=== PATIENT | female | born 1975 | race Caucasian/White ===

== ENCOUNTER 2018-05-24 11:00 | Emergency (ER) | payer MEDICARE ==
[~2018-05-24] VITALS: Ht 162.6 cm; Wt 54.5 kg
[2018-05-24 11:16] VITALS: Ht 162.6 cm; Wt 54.5 kg
[2018-05-24 11:40] LABS: BASOPHILS 0.2 % (0-2); EOSINOPHILS 0.8 % (0-7); HEMATOCRIT 41.8 % (36.0-48.0); HEMOGLOBIN 14.3 g/dL (12-16); IMMATURE GRANULOCYTES 0.2 % (0-5); LYMPHOCYTES 17.6 % (15-50); MCH 32.5 pg (26.0-34.0); MCHC 34.2 g/dL (31.0-37.0); MEAN PLATELET VOLUME 9.1 fL (7.4-10.4); MONOCYTES 6.3 % (2-11); NEUTROPHILS 74.9 % (40-80); PLATELET COUNT 223 10x3/uL (130-400); RDW 12.3 % (11.5-14.5); WBC 10.7 10x3/uL (4.8-10.8)
[2018-05-24 11:53] LABS: APPEARANCE HAZY (CLEAR); BILIRUBIN NEGATIVE (NEGATIVE); COLOR STRAW (YELLOW); GLUCOSE NEGATIVE (NEGATIVE); KETONE NEGATIVE (NEGATIVE); PROTEIN 1+ mg/dL (NEGATIVE); UROBILINOGEN NORMAL (NORMAL)
[2018-05-24 11:54] LABS: NITRITE POSITIVE (NEGATIVE)
[2018-05-24 11:56] LABS: BACTERIA FEW /hpf (NONE SEEN)
[2018-05-24 12:00] LABS: EPITHELIAL CELLS OCC /hpf (0-5)
[2018-05-24 12:01] LABS: MUCUS <1+ /lpf (NONE SEEN)
[2018-05-24 12:07] LABS: ALBUMIN 4.3 g/dL (3.4-5.0); ALKALINE PHOSPHATASE 39 U/L (46-116); ALT (SGPT) 20 U/L (10-68); BILIRUBIN - TOTAL 0.66 mg/dL (0.2-1.3); CALC OSMOLALITY 279 mosm/kg (275-300); CALCIUM 9.1 mg/dL (8.5-10.1); CARBON DIOXIDE 30.9 mmol/L (21.0-32.0); CHLORIDE - SERUM 105 mmol/L (98-107); CREATININE - SERUM 0.7 mg/dL (0.6-1.3); GLUCOSE 105 mg/dL (74-106); POTASSIUM - SERUM 4.1 mmol/L (3.5-5.1); PROTEIN - SERUM 7.4 g/dL (6.4-8.2); SODIUM 141 mmol/L (136-145); UREA NITROGEN 9 mg/dL (7-18); eGFR NON AFRICAN AMERICAN > 90 mL/min (90-120)
[2018-05-24 16:04] LABS: HCG SERUM NEGATIVE (NEGATIVE)
[2018-05-24 16:15] VITALS: BP 146/96
[2018-05-24] MEDS ORDERED: MACROBID100 MG PO (17:09)
[2018-05-24] MEDS ORDERED: ZOFRAN8 MG PO (17:09)
[2018-05-24] MEDS ORDERED: TORADOL10 MG PO (17:09)
== END 2018-05-24 17:55 | disposition home or self-care (01) ==
LOC: D.ER 11:00
PROVIDERS: Family Medicine
DX: R30.0 Dysuria (principal); R10.30 Lower abdominal pain, unspecified; N39.0 Urinary tract infection, site not specified; R35.0 Frequency of micturition; R11.2 Nausea with vomiting, unspecified; F17.200 Nicotine dependence, unspecified, uncomplicated

== ENCOUNTER 2019-02-17 21:12 | Emergency (ER) | payer MEDICARE ==
[~2019-02-17] VITALS: Ht 162.6 cm; Wt 54.5 kg
[~2019-02-17 21:12] MED LIST: MACROBID100 MG PO; TORADOL10 MG PO; ZOFRAN8 MG PO
[2019-02-17 21:49] VITALS: Ht 162.6 cm; Wt 54.5 kg
[2019-02-17] MEDS ORDERED: KLONOPIN1 MG PO (21:50)
[2019-02-17 22:24] LABS: APPEARANCE CLEAR (CLEAR); BILIRUBIN NEGATIVE (NEGATIVE); COLOR YELLOW (YELLOW); GLUCOSE NEGATIVE (NEGATIVE); KETONE SMALL mg/dL (NEGATIVE); NITRITE NEGATIVE (NEGATIVE); PROTEIN NEGATIVE (NEGATIVE); UROBILINOGEN NORMAL (NORMAL)
[2019-02-17 22:26] LABS: WHITE CELLS - URINE 0-5 /hpf (0-5)
[2019-02-17 22:27] LABS: BACTERIA FEW /hpf (NONE SEEN); MUCUS <1+ /lpf (NONE SEEN)
[2019-02-17 22:31] LABS: UDS - AMPHET NEGATIVE QUAL (NEGATIVE); UDS - BARB NEGATIVE QUAL (NEGATIVE); UDS - BENZO NEGATIVE QUAL (NEGATIVE); UDS - COCAINE NEGATIVE QUAL (NEGATIVE); UDS - OPIATE NEGATIVE QUAL (NEGATIVE); UDS - PCP NEGATIVE QUAL (NEGATIVE); UDS - THC POSITIVE QUAL (NEGATIVE)
[2019-02-17 23:26] LABS: BASOPHILS 0.5 % (0-2); EOSINOPHILS 3.2 % (0-7); HEMATOCRIT 38.8 % (36.0-48.0); HEMOGLOBIN 13.4 g/dL (12-16); IMMATURE GRANULOCYTES 0.2 % (0-5); LYMPHOCYTES 47.7 % (15-50); MCH 32.1 pg (26.0-34.0); MCHC 34.5 g/dL (31.0-37.0); MEAN PLATELET VOLUME 8.9 fL (7.4-10.4); MONOCYTES 7.9 % (2-11); NEUTROPHILS 40.5 % (40-80); PLATELET COUNT 234 10x3/uL (130-400); RBC 4.17 10x6/uL (4.00-5.40); RDW 12.2 % (11.5-14.5); WBC 6.6 10x3/uL (4.8-10.8)
[2019-02-17 23:38] LABS: ALBUMIN 4.2 g/dL (3.4-5.0); ALKALINE PHOSPHATASE 33 U/L (46-116); ALT (SGPT) 21 U/L (10-68); BILIRUBIN - TOTAL 0.53 mg/dL (0.2-1.3); CALC OSMOLALITY 279 mosm/kg (275-300); CALCIUM 8.8 mg/dL (8.5-10.1); CARBON DIOXIDE 27.3 mmol/L (21.0-32.0); CHLORIDE - SERUM 102 mmol/L (98-107); CREATININE - SERUM 0.7 mg/dL (0.6-1.3); GLUCOSE 83 mg/dL (74-106); POTASSIUM - SERUM 3.7 mmol/L (3.5-5.1); PROTEIN - SERUM 7.3 g/dL (6.4-8.2); SODIUM 140 mmol/L (136-145); UREA NITROGEN 17 mg/dL (7-18); eGFR NON AFRICAN AMERICAN > 90 mL/min (90-120)
[2019-02-17] MEDS ORDERED: VISTARIL25 MG PO (23:41)
[2019-02-18 00:15] VITALS: BP 132/78
== END 2019-02-18 00:16 | disposition home or self-care (01) ==
LOC: D.ER 21:12
PROVIDERS: Emergency Medicine
DX: L50.9 Urticaria, unspecified (principal); Z77.111 Contact with and (suspected) exposure to water pollution